=== PATIENT | female | born 1990 | race Hispanic/Latino ===

== ENCOUNTER 2023-04-18 09:20 | Emergency (ER) | payer OTHER, BC ==
[2023-04-18 09:56] LABS: Absolute Lymphocytes (CBC) 1.5 K/uL (0.7-4.9); Hematocrit 37.8 % (36.0-45.0); Lymphocytes % 29.6 % (15.3-44.8); MCV 87.4 fL (80-100); MPV 10.3 fL (7.6-11.3); Platelets 222 thou/uL (152-406); RBC Red Blood Cell Count 4.32 M/uL (3.86-4.86)
[2023-04-18] MEDS ORDERED: ACETAMINOPHEN 500 MG TAB ONE (10:05)
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
[2023-04-18 10:14] LABS: Potassium 3.7 mEq/L (3.5-5.1)
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
[2023-04-18 11:45] VITALS: BP 124/91; TEMP 98.2; O2SAT 100
== END 2023-04-18 11:01 | disposition home or self-care (01) ==
LOC: EDBD 09:20 → ER 09:20
DX: M54.2 Cervicalgia (principal); V49.40XA Driver injured in collision with unspecified motor vehicles in traffic accident, initial encounter
CPT/HCPCS: 85025; 80048; 36415; 86900; 86850; 86901; 70450; 72125; 71260; 74177; 99285; Q9967